=== PATIENT | male | born 2000 | race Two or more races ===

== ENCOUNTER 2023-08-17 16:12 | Emergency (ER) | payer SELFPAY ==
[~2023-08-17] VITALS: Ht 167.6 cm; Wt 65.3 kg
[2023-08-17 16:40] VITALS: BP 105/56; PULSE 90; RESP 18; TEMP 99; O2SAT 96
[2023-08-17] MEDS ORDERED: IBUP-2213 PO (18:39)
[2023-08-17] MEDS ORDERED: AMOX1TAB8 PO (18:39)
[2023-08-17] MEDS ORDERED: BENZ-300 PO (18:39)
[2023-08-17] MEDS: DEXAMETHASONE 10 MG/ML VIAL IM ONE (19:14)
== END 2023-08-17 19:14 | disposition home or self-care (01) ==
LOC: MED 16:12
DX: J02.8 Acute pharyngitis due to other specified organisms (principal); R50.9 Fever, unspecified; B96.89 Other specified bacterial agents as the cause of diseases classified elsewhere; Z79.899 Other long term (current) drug therapy
CPT/HCPCS: 96372; 99283; J1100